=== PATIENT | female | born 1955 | race Caucasian/White ===

== ENCOUNTER 2021-09-29 11:59 | Emergency (ER) | payer MEDICARE, SELFPAY ==
[2021-09-29] VITALS (7 sets, daily range): BP systolic 139–174; BP diastolic 68–89; PULSE 69–92; RESP 18; TEMP 36.8; O2SAT 94–98; BMI 19.2
--- NOTE | 2021-09-29 12:20 | DI.RAD.S_ITS ---
PROCEDURE: XR WRIST LT MIN 3V INDICATIONS: open fractutre TECHNIQUE: 3 views of the wrist were acquired. COMPARISON: None. FINDINGS: Bones: Acute comminuted fractures involving distal radial and ulnar shafts with volar and lateral displacement at fracture sites . Impaction at distal radial and ulnar shaft fracture sites are also seen with overlapping. No suspicious bony lesions. Scaphoid view: Scaphoid is grossly intact. Soft tissues: No suspicious soft tissue calcifications. IMPRESSION: Acute comminuted, and displaced distal radial and ulnar shaft fractures as above. Dictated by: Buzz Bright M.D. on 09/29/2021 at 13:28 Approved by: Buzz Bright M.D. on 09/29/2021 at 13:29
--- NOTE | 2021-09-29 12:20 | ED_ITS ---
HPI - General Adult General Chief complaint: Trauma Stated complaint: Fall, Wrist Fx Time Seen by Provider: 09/29/21 12:02 Source: patient Mode of arrival: EMS Limitations: no limitations History of Present Illness HPI narrative: Patient is a 58-year-old female. Right-hand dominant to his here for evaluation of an open left wrist fracture. Patient was here trying to get onto a boat down at the local [place]. She had 1foot on the boat in 1 foot on the dock. She turned to this and someone who was talking when she slipped and fell on her left wrist. Had immediate pain. EMS was called. No prior injuries to this area. Received 100 mcg of fentanyl and 10 mg of ketamine prior to arrival. Was placed in a splint. She reports no other injuries from the event. Related Data Allergies Allergy/AdvReac Type Severity Reaction Status Date / Time No Known Drug Allergies Allergy Verified 09/29/21 12:25 Review of Systems Constitutional Constitutional: Reports system reviewed and no additional complaints, except as documented Musculoskeletal Musculoskeletal: Reports system reviewed and no additional complaints, except as documented Integumentary/Breasts Skin/Breast: Reports system reviewed and no additional complaints, except as documented Neurologic Neurologic: Reports system reviewed and no additional complaints, except as documented Hematologic/Lymphatic On Anticoagulants: No Patient History Medical History Healthy adult Social History (Updated 09/29/21 @ 12:24 by Holland Mack DO) marital status: Smoking Status: Never smoker Exam Initial Vital Signs Initial Vital Signs: Vital Signs Pulse Rate 69 09/29/21 12:04 Pulse Oximetry 98 09/29/21 12:04 HENNY Head: normal to inspection and normocephalic Cardio Pulses: radial pulses present on the left Skin Other: Patient does have a 2 cm laceration on the dorsum of the left wrist with what appears to be the end of the radius exposed. Neuro Sensory Exam: no sensory deficits noted Extrem Other: Obvious deformity to the left wrist with discomfort with palpation. Her left elbow left shoulder is unremarkable. Her left hand is unremarkable. Procedures Orthopedic Splinting/Casting Injury #1: Side: left Upper Extremity Injury Location: wrist Upper Extremity Immobilizer: volar splint Post splinting neuro exam: no change Post splinting vascular exam: no change Placed by: Provider Course Orders Ordered: ED Orders 09/29/21 12:20 XR wrist LT min 3V Stat 09/29/21 13:57 COVID19 -Nasal RAPID/Pre-Proc Stat 09/29/21 14:03 Basic Metabolic Panel Stat Complete Blood Count AUTO DIFF Stat Discontinued Medications Hydrocodone Bitart/Acetaminophen (Hydrocodone/Acet 5/325 Tablet) 1 tab PO NOW ONE Stop: 09/29/21 14:24 Cefazolin Sodium/Dextrose (Cefazolin 2 Gm/20 Ml Syringe) 2 gm IV NOW ONE Stop: 09/29/21 12:21 Last Admin: 09/29/21 12:53 Dose: 2 gm Documented by: ADELA Hydromorphone HCl (Hydromorphone 1 Mg Inj) 1 mg IV NOW ONE Stop: 09/29/21 12:53 Last Admin: 09/29/21 13:17 Dose: 1 mg Documented by: MILENA Morphine Sulfate (Morphine 4 Mg/Ml Inj) 4 mg IV NOW ONE Stop: 09/29/21 12:21 Last Admin: 09/29/21 12:37 Dose: 4 mg Documented by: ADELA Vital Signs Vital signs: Vital Signs - 8 hr 09/29/21 12:04 09/29/21 12:05 09/29/21 12:30 Temperature 98.3 F Pulse Rate 69 71 78 Respiratory Rate 18 Blood Pressure 174/89 H 145/81 H Pulse Oximetry 98 96 94 09/29/21 13:00 09/29/21 13:30 09/29/21 14:00 Temperature Pulse Rate 83 88 78 Respiratory Rate Blood Pressure 150/81 H 143/75 H 139/68 Pulse Oximetry 98 97 96 09/29/21 14:30 Temperature Pulse Rate 92 H Respiratory Rate Blood Pressure 166/84 H Pulse Oximetry 97 Medical Decision Making Lab Data Lab results reviewed: Yes I reviewed the patient's lab results. Result diagrams: 09/29/21 14:03 09/29/21 14:03 Labs: Lab Results 09/29/21 09/29/21 09/29/21 Range/Units 13:57 14:03 14:03 WBC 13.1 H (4.5-11.0) X10^3/uL RBC 4.38 (4.0-5.2) X10^6/uL Hgb 12.6 (12.0-16.0) g/dL Hct 37.9 (36-46) % MCV 86.5 (80-100) fL MCH 28.7 (26-34) PG MCHC 33.2 (30-36) % RDW 13.5 (11.6-14.8) % Plt Count 243 (150-400) X10^3/uL Neut % (Auto) 66.9 (50-75) % Lymph % (Auto) 29.7 (25-40) % Izard % (Auto) 3.0 (3-14) % Eos % (Auto) 0.2 L (2-4) % Baso % (Auto) 0.2 (0-2) % Neut # (Auto) 8800 H (4045-3088) /uL Lymph # (Auto) 3900 (4902-9164) /uL Izard # (Auto) 400 (0-900) /uL Eos # (Auto) 0 (0-450) /uL Baso # (Auto) 0 (0-100) /uL Sodium 140 (137-145) mmol/L Potassium 3.8 (3.4-5.1) mmol/L Chloride 107 (98-107) mmol/L Carbon Dioxide 25 (22-32) mmol/L BUN 13 (7-17) mg/dL Creatinine 0.58 (0.52-1.04) mg/dL Estimated GFR > 60 (>60) mL/min BUN/Creatinine Ratio 22.4 H (6-22) Glucose 124 H (80-110) mg/dL Calcium 8.5 (8.4-10.2) mg/dL SARS-CoV-2 (PCR) Negative (Negative) Imaging Data Extremity x-ray #1: Radiologist's Impression: [address] [address] XRay Report Signed Patient: Arin Mariee MR#: [id number] : 1955 Acct:[id number] Age/Sex: 66 / F Date of Service: 09/29/21 Loc: ED Accession Number: [id number] ?? Procedure: XR wrist LT min 3V Ordering Provider: Holland Mack D.O. PROCEDURE:? XR WRIST LT MIN 3V ? INDICATIONS: open fractutre ? TECHNIQUE:? 3 views of the wrist were acquired.? ? COMPARISON:? None. ? FINDINGS:? ? Bones:? Acute comminuted fractures involving distal radial and ulnar shafts with volar and lateral displacement at fracture sites .? Impaction at distal radial and ulnar shaft fracture sites are also seen with overlapping.? No suspicious bony lesions.? ? Scaphoid view:? Scaphoid is grossly intact. ? Soft tissues:? No suspicious soft tissue calcifications.? ? IMPRESSION:? Acute comminuted, and displaced distal radial and ulnar shaft fractures as above.? ? ? Dictated by: Buzz Bright M.D. on 09/29/2021 at 13:28 ? ? Approved by: Buzz Bright M.D. on 09/29/2021 at 13:29?? MDM Narrative Medical decision making narrative: No other injuries reported from the event. Patient does have a obvious open left distal radius/ulnar fracture. She is up-to-date on her tetanus. She was given 2 g of Ancef. She does have a strong radial pulse and brisk capillary refill and sensation is intact. The fracture was reduced enough in order to get the bone back into the skin and she was placed in a volar splint for comfort and stabilization. X-ray show a comminuted angulated distal radius fracture. Patient request to be transferred to [facility] despite having the ability to care for this injury at this facility. I did inform the patient that the orthopedic surgeon on-call today his a L citrate hand surgeon she still request transfer. Did discuss the case with Dr. Gutierres with ortho at [facility] who states that he would be happy to accept the patient. I then discussed the case with Dr. Yun with the emergency department who accepts the patient as transfer as well. Had a discussion with the patient regarding risks and benefits of transfer. She states she is comfortable being transferred by private vehicle and not ambulance. Patient was given a copy the x-rays on a CD. She was given instructions on where to proceed. She is currently stable for transfer. Discharge Plan Departure Patient Disposition: [facility] Clinical Impression: Open fracture of left wrist Activity Restrictions/Additional Instructions: You are being transferred to the [facility] in [facility] by private vehicle per your request. Go directly from this emergency department to the [facility] Emergency Department. Do not eat anything on your way there. The injury that you have sustained is going to require surgery. Upon arrival to the emergency department go to the restaurant front manager and state that your auto accepted by Dr. Yun for your injuries. Referrals: Miscellaneous,Doctor, MD [Primary Care Provider] -
[2021-09-29] MEDS: MORPHINE 4 MG/ML INJ IV (12:37)
[2021-09-29] MEDS: CEFAZOLIN 2 GM/20 ML SYRINGE IV (12:53)
[2021-09-29] MEDS: HYDROMORPHONE 1 MG INJ IV (13:17)
[2021-09-29 14:13] LABS: Add Manual Diff / Slide Review NO; Basophils Absolute Auto 0 /uL (0-100); Basophils Percent Auto 0.2 % (0-2); Eosinophils Absolute Auto 0 /uL (0-450); Eosinophils Percent Auto 0.2 % (2-4); Hematocrit 37.9 % (36-46); Hemoglobin 12.6 g/dL (12.0-16.0); Lymphocytes Absolute Auto 3900 /uL (1100-4500); Lymphocytes Percent Auto 29.7 % (25-40); Mean Corpuscular HGB Conc 33.2 % (30-36); Mean Corpuscular Hemoglobin 28.7 PG (26-34); Mean Corpuscular Volume 86.5 fL (80-100); Monocytes Absolute Auto 400 /uL (0-900); Neutrophils Absolute Auto 8800 /uL (1500-7000); Neutrophils Percent Auto 66.9 % (50-75); Platelet Count 243 X10^3/uL (150-400); Red Blood Cell Count 4.38 X10^6/uL (4.0-5.2); Red Cell Distribution Width 13.5 % (11.6-14.8); White Blood Cell Count 13.1 X10^3/uL (4.5-11.0)
[2021-09-29 14:24] LABS: BUN Creatinine Ratio 22.4 (6-22); Blood Urea Nitrogen 13 mg/dL (7-17); Calcium 8.5 mg/dL (8.4-10.2); Carbon Dioxide 25 mmol/L (22-32); Chloride 107 mmol/L (98-107); Estimated Glomerular Filt Rate > 60 mL/min (>60); Glucose 124 mg/dL (80-110); HEMOLYSIS < 15 (0-50); Potassium 3.8 mmol/L (3.4-5.1); Sodium 140 mmol/L (137-145)
[2021-09-29 14:28] LABS: COVID19 -Nasal RAPID Negative (Negative)
[2021-09-29] MEDS: HYDROCODONE/ACET 5/325 TABLET 1 TAB PO (14:34)
== END 2021-09-29 15:10 | disposition short-term general hospital (02) ==
PROVIDERS: Emergency Provider Emergency Medicine
DX: S62.102B Fracture of unspecified carpal bone, left wrist, initial encounter for open fracture (principal); W19.XXXA Unspecified fall, initial encounter; Z20.822 Contact with and (suspected) exposure to COVID-19
CPT/HCPCS: 73110; 80048; 85025; 87635; 96374; 96375; 99284; C9803; J0690; J1170; J2270